=== PATIENT | male | born 1975 | race African-American/Black ===

== ENCOUNTER 2019-02-18 05:03 | Inpatient (IN) ==
[2019-02-18] MEDS ORDERED: MORPHINE 4 MG/1 ML VIAL IV STA (06:16)
[2019-02-18 06:50] LABS: Basophils % 0.5 % (0.0-0.8); Eosinophils # 0.2 10*3/uL (0.0-0.87); Eosinophils % 3.4 % (0.00-10.9); Hematocrit 31.5 VOL% (42.0-52.0); Hemoglobin 9.8 GM/DL (14.0-18.0); Immature Granulocytes % 0.3 %; Immature Granulocytes Absolute 0.02 #; Lymphocytes # 1.3 10*3/uL (1.4-4.0); Lymphocytes % 22.9 % (21.2-54.2); Mean Corpuscular HGB Conc 31.1 GM/DL (32-36); Mean Corpuscular Volume 87.3 FL (87-102); Mean Platelet Volume 10.9 FL (9.6-12.0); Monocytes % 9.9 % (1.7-12.7); Platelet Count 504 T/CUMM (130-400); Red Blood Count 3.61 MC/CUMM (3.8-5.5); Red Cell Distribution Width 16.7 % (9.3-17.3); White Blood Count 5.9 T/CUMM (4-12)
[2019-02-18 07:13] LABS: Calcium 5.9 MG/DL (8.5-10.1); Osmolality,Calculated 302.8 MOS/KG (273-304)
[2019-02-18] MEDS ORDERED: INSULIN NPH/REGULAR 70/30 100 UNIT/ML SUBCUT ONE (09:34)
[2019-02-18] MEDS ORDERED: ONDANSETRON 4 MG/2 ML VIAL IV STA (10:19)
[2019-02-18] MEDS ORDERED: ACETAMINOPHEN 325 MG TABLET PO PRN (11:42)
[2019-02-18] MEDS ORDERED: ONDANSETRON 4 MG/2 ML VIAL IV PRN ×2 (11:42→19:31)
[2019-02-18] MEDS ORDERED: traZODone 50 MG TABLET PO PRN ×2 (11:42→19:31)
[2019-02-18] MEDS ORDERED: ALBUTEROL/IPRATROPIUM 3 ML NEB RESP TX PRN (11:46)
[2019-02-18] MEDS ORDERED: ENOXAPARIN 30 MG/0.3 ML SYRINGE SUBCUT SCH (12:00)
[2019-02-18] MEDS ORDERED: cefTRIAXone 1,000 MG in SYRINGE 1 EACH IV SCH ×2 (12:00→20:00)
[2019-02-18] MEDS ORDERED: AZITHROMYCIN INJ 500 MG in SODIUM CHLORIDE 0.9% 250 ML IV SCH ×2 (12:00→21:00)
[2019-02-18] MEDS ORDERED: GLUCAGON 1 MG VIAL IM PRN (12:07)
[2019-02-18] MEDS ORDERED: DEXTROSE 50% 25 GM/50 ML VIAL IV PRN (12:07)
[2019-02-18 13:09] LABS: Hepatitis B Core IgM Quant 0.08 Index; Hepatitis B Surface Ab Result Negative; Hepatitis B Surface Ag Quant < 0.10 Index; Hepatitis B Surface Ag Result Negative (Negative)
[2019-02-18 13:24] LABS: CKMB % 0.4 %; Troponin I 0.075 NG/ML (0.00-0.045)
[2019-02-18] MEDS: CARVEDILOL 12.5 MG TABLET PO SCH ×2 (15:06→20:35)
[2019-02-18] MEDS: amLODIPine 10 MG TABLET PO SCH (15:06)
[2019-02-18] MEDS ORDERED: HEPARIN 10,000 UNIT/10 ML VIAL IV SCH (15:30)
[2019-02-18] MEDS ORDERED: INSULIN ASPART PROTAMINE/ASPART 70/30 100 UNIT/ML SUBCUT SCH (16:30)
[2019-02-18] MEDS: INSULIN REGULAR 100 UNIT/ML SUBCUT SCH ×2 (17:10→20:36)
[2019-02-18 21:09] LABS: Amorphous Crystals,Urine Occasional /HPF (Few); Apearance,Urine Slightly Hazy (Clear); Bacteria,Urine Occasional /HPF (Few); Bilirubin,Urine Negative (Negative); Blood, Urine Small mg/dL (Negative); Glucose,Urine (UA) 150 mg/dL (Negative); Hyaline Casts,Urine 6 /LPF (0-3); Ketones,Urine Negative (Negative); Mucus,Urine Occasional /LPF (Occasional); Nitrite,Urine Negative (Negative); Protein,Urine >=500 MG/DL; RBC,Urine 2 /HPF (0-4); Squamous Epithelial Cell,Urine Occasional /HPF (0-10); Urine Color Yellow (Yellow); Urine Specific Gravity 1.022 (1.001-1.035); Urine Urobilinogen < 2.0 EU/DL (0.2-1.0); WBC,Urine 2 /HPF (0-6)
[2019-02-19 05:06] LABS: Basophils % 0.6 % (0.0-0.8); Eosinophils # 0.2 10*3/uL (0.0-0.87); Eosinophils % 3.9 % (0.00-10.9); Hematocrit 27.5 VOL% (42.0-52.0); Hemoglobin 8.8 GM/DL (14.0-18.0); Immature Granulocytes % 0.2 %; Immature Granulocytes Absolute 0.01 #; Lymphocytes # 1.5 10*3/uL (1.4-4.0); Lymphocytes % 29.3 % (21.2-54.2); Mean Corpuscular Volume 86.2 FL (87-102); Mean Platelet Volume 11.1 FL (9.6-12.0); Monocytes % 11.8 % (1.7-12.7); Neutrophils % 54.2 % (38.7-73.9); Red Blood Count 3.19 MC/CUMM (3.8-5.5); Red Cell Distribution Width 16.5 % (9.3-17.3); White Blood Count 5.2 T/CUMM (4-12)
[2019-02-19 05:20] LABS: Platelet Count 396 T/CUMM (130-400)
[2019-02-19 05:31] LABS: CKMB % 0.4 %
[2019-02-19 05:34] LABS: Troponin I 0.046 NG/ML (0.00-0.045)
[2019-02-19 06:33] LABS: Albumin 2.1 G/DL (3.4-5.0); Bilirubin,Total 0.9 MG/DL (0.2-1.0); Calcium 6.2 MG/DL (8.5-10.1); Osmolality,Calculated 294.7 MOS/KG (273-304); Risk Ratio 1.73; VLDL CHOLESTEROL 18.2 MG/DL
[2019-02-19] MEDS: INSULIN REGULAR 100 UNIT/ML SUBCUT SCH ×4 (07:49→20:59)
[2019-02-19] MEDS: CARVEDILOL 12.5 MG TABLET PO SCH ×2 (08:33→20:59)
[2019-02-19] MEDS: amLODIPine 10 MG TABLET PO SCH (08:33)
[2019-02-19] MEDS: PANTOPRAZOLE 40 MG TABLET PO SCH (08:33)
[2019-02-19] MEDS ORDERED: PANTOPRAZOLE 40 MG TABLET PO SCH (09:00)
[2019-02-19] MEDS ORDERED: AZITHROMYCIN 250 MG TABLET PO ONE (14:43)
[2019-02-20] MEDS: INSULIN REGULAR 100 UNIT/ML SUBCUT SCH ×3 (08:52→18:26)
[2019-02-20] MEDS ORDERED: AZITHROMYCIN 250 MG TABLET PO SCH ×2 (09:00)
[2019-02-20] MEDS ORDERED: LISINOPRIL 5 MG TABLET PO SCH (09:00)
[2019-02-20 16:33] VITALS: BP 158/111
[2019-02-20] MEDS: amLODIPine 10 MG TABLET PO SCH (18:26)
[2019-02-20] MEDS: PANTOPRAZOLE 40 MG TABLET PO SCH (18:26)
[2019-02-20] MEDS: CARVEDILOL 12.5 MG TABLET PO SCH (18:26)
== END 2019-02-20 18:53 | disposition left against medical advice (07) | DRG 640 ==
LOC: N.ED 05:03 → N.EDINP 11:08 → N.2E 11:25
PROVIDERS: ADMIT Internal Medicine; ATTEND Internal Medicine